=== PATIENT | female | born 1985 | race African-American/Black ===

== ENCOUNTER 2016-06-19 15:16 | Emergency (ER) | payer OTHER ==
[2016-06-19 15:58] VITALS: BP 112/72
--- NOTE | 2016-06-19 16:27 | UC ---
FLU HPI - HPI Summary HPI Summary: cough, sore throat fevers and chills began on Tuesdays---works at [employer] and has not gotten her flu vaccine yet - History of Current Complaint Chief Complaint: UCGeneralIllness Stated Complaint: ST,FEVER,ACHES Time Seen by Provider: 06/19/16 16:26 Hx Obtained From: Patient Hx Last Menstrual Period: 06/06/16 ?: No Onset/Duration: Sudden Onset, Lasting Days - 2, Still Present Severity Currently: Moderate Severity Initially: Moderate Pain Intensity: 5 Pain Scale Used: 0-10 Numeric Associated Signs & Symptoms: Positive: Fever, Myalgia, Cough, Sore Throat, Nasal Congestion, Headache Related Hx: Possible Flu/Infectious Exposure - Allergy/Home Medications Allergies/Adverse Reactions: Allergies Allergy/AdvReac Type Severity Reaction Status Date / Time No Known Allergies Allergy Verified 06/19/16 15:58 PMH/Surg Hx/FS Hx/Imm Hx Previously Healthy: Yes - Surgical History Surgical History: Yes Surgery Procedure, Year, and Place: c section - Family History Known Family History: Positive: Hypertension - Social History Occupation: Employed Full-time Lives: With Family Alcohol Use: Occasionally Substance Use Type: None Smoking Status (MU): Light Every Day Tobacco Smoker Amount Used/How Often: 1/2 PPD Household Exposure Type: Cigarettes Review of Systems Constitutional: Fever, Chills, Fatigue Skin: Negative Eyes: Negative ENT: Sore Throat, Nasal Discharge Respiratory: Cough Cardiovascular: Negative Gastrointestinal: Negative Genitourinary: Negative Motor: Negative Neurovascular: Negative Musculoskeletal: Arthralgia, Myalgia Neurological: Headache Psychological: Negative All Other Systems Reviewed And Are Negative: Yes Physical Exam Triage Information Reviewed: Yes Appearance: Well-Nourished, Ill-Appearing - mild, Pain Distress - mild Vital Signs: Initial Vital Signs Temp 99.5 F 06/19/16 15:53 Pulse 102 06/19/16 15:53 Resp 18 06/19/16 15:53 BP 112/72 06/19/16 15:53 Pulse Ox 100 06/19/16 15:53 Vital Signs Reviewed: Yes Eye Exam: Normal Eyes: Positive: Conjunctiva Clear ENT Exam: Other ENT: Positive: Normal ENT inspection, Hearing grossly normal, Pharynx normal, Nasal congestion, Nasal drainage, TMs normal. Negative: Tonsillar swelling, Tonsillar exudate, Trismus, Muffled/hoarse voice Dental Exam: Normal Neck exam: Normal Neck: Positive: Supple, Nontender, No Lymphadenopathy Respiratory Exam: Normal Respiratory: Positive: Chest non-tender, Lungs clear, Normal breath sounds, No respiratory distress, No accessory muscle use Cardiovascular Exam: Normal Cardiovascular: Positive: No Murmur, Pulses Normal, Brisk Capillary Refill, Tachycardia Musculoskeletal Exam: Normal Musculoskeletal: Positive: Strength Intact, ROM Intact, No Edema Neurological Exam: Normal Neurological: Positive: Alert, Muscle Tone Normal Psychological Exam: Normal Skin Exam: Normal Diagnostics - Laboratory Diagnostic Studies Completed/Ordered: RST and FLU a/b (-) Flu Course/Dx - Course Course Of Treatment: rest increase fluids, tylenol, ibuprofen, otc symptom relief follow with pcp re-check prn - Differential Dx/Diagnosis Differential Diagnosis/HQI/PQRI: Broncholiolitis, Influenza, RSV, Upper Respiratory Infection Provider Diagnoses: Viral URI Discharge - Discharge Plan Condition: Stable Disposition: HOME Patient Education Materials: Upper Respiratory Infection (ED), Viral Syndrome ( ED) Forms: *Work Release Referrals: Sobeida Eid MD [Primary Care Provider] - If Needed
[2016-06-19] MEDS ORDERED: Ibuprofen TAB* 600 MG PO ONE (17:06)
== END 2016-06-19 17:54 | disposition home or self-care (01) ==
LOC: UCEAST 15:16
DX: J06.9 Acute upper respiratory infection, unspecified (principal); F17.210 Nicotine dependence, cigarettes, uncomplicated
CPT/HCPCS: 87651; 99212; A9270-GY; G0463

== ENCOUNTER 2017-07-24 12:14 | Emergency (ER) | payer OTHER ==
[2017-07-24] MEDS ORDERED: Acetaminophen TAB* 325 MG PO ONE (13:09)
[2017-07-24] MEDS ORDERED: Cyclobenzaprine TAB* 10 MG PO ONE (13:10)
[2017-07-24 14:18] LABS: Urine Appearance Cloudy; Urine Blood Negative (Negative); Urine Color Yellow; Urine Ketones 2+ (Negative); Urine Protein 1+(30 mg/dL) (Negative); Urine Specific Gravity 1.029 (1.010-1.030); Urine Urobilinogen Negative (Negative)
--- NOTE | 2017-07-24 15:10 | ED ---
Abdominal Pain/Female - HPI Summary HPI Summary: Pt presents w/ B/L LBP which started a few days ago - has progressed into tightness/soreness into thoracic and Rt shoulder area. Worse w/ bending, lifting , moving arms. H/o pulling back muscles at times but has been a while - no alyssa trauma with these sx but reports she's a [employer] and moves pts routinely. Has tried ibuprofen with minimal relief. Denies numbness, tingling, weakness, incontinence of bowels or bladder, urinary frequency, dysuria, hematuria, fever , chills, nausea, vomiting, diarrhea, chest pain, shortness of breath. Concerned she might have a UTI so just wanted to get checked to be safe. - History of Current Complaint Chief Complaint: EDBackInjuryPain Stated Complaint: BACK PAIN POSSIBLE FLANK PAIN Time Seen by Provider: 07/24/17 12:31 Hx Obtained From: Patient Hx Last Menstrual Period: 06/06/16 Pain Intensity: 5 Allergies/Adverse Reactions: Allergies Allergy/AdvReac Type Severity Reaction Status Date / Time No Known Allergies Allergy Verified 06/19/16 15:58 PMH/Surg Hx/FS Hx/Imm Hx Previously Healthy: Yes Endocrine/Hematology History: Denies: Autoimmune Disease - Surgical History Surgery Procedure, Year, and Place: c section Infectious Disease History: No Infectious Disease History: Denies: History Other Infectious Disease, Traveled Outside the [place] in Last 30 Days - Family History Known Family History: Positive: Hypertension - Social History Occupation: Employed Full-time - [employer] Lives: With Family Alcohol Use: Occasionally Hx Substance Use: No Substance Use Type: Reports: Marijuana - uses for anxiety at times Hx Tobacco Use: Yes Smoking Status (MU): Light Every Day Tobacco Smoker Amount Used/How Often: 1/2 PPD Physical Exam Vital Signs On Initial Exam: Initial Vitals Temp Pulse Resp BP Pulse Ox 98.1 F 101 18 119/65 98 07/24/17 12:17 07/24/17 12:17 07/24/17 12:17 07/24/17 12:17 07/24/17 12:17 Diagnostics - Vital Signs Vital Signs Temp Pulse Resp BP Pulse Ox 07/24/17 12:17 98.1 F 101 18 119/65 98 - Laboratory Lab Results: Lab Results 07/24/17 Range/Units 13:58 Urine Color Yellow Urine Appearance Cloudy Urine pH 5.0 (5-9) Ur Specific [place] 1.029 (1.010-1.030) Urine Protein 1+(30 mg/dl) H (Negative) Urine Ketones 2+ H (Negative) Urine Blood Negative (Negative) Urine Nitrate Negative (Negative) Urine Bilirubin Negative (Negative) Urine Urobilinogen Negative (Negative) Ur Leukocyte Esterase Negative (Negative) Urine WBC (Auto) Trace(0-5/hpf) (Absent) Urine RBC (Auto) Trace(0-2/hpf) (Absent) Ur Squamous Epith Cells Present H (Absent) Urine Bacteria 1+ H (Absent) Urine Glucose Negative (Negative) Lab Statement: Any lab studies that have been ordered have been reviewed, and results considered in the medical decision making process. Re-Evaluation - Re-Evaluation First Eval Change: Improved Abdominal Pain Fem Course/Dx - Course Course Of Treatment: U/A unremarkable for stone, infection (appears to be a contamited collection and no urinary sx). ANA back pain. Rest, stretches, etc. F/u w/ PCP this week if persist. - Diagnoses Provider Diagnoses: Low back pain Discharge - Discharge Plan Condition: Stable Disposition: HOME Patient Education Materials: Low Back Strain (ED) Forms: *Work Release Referrals: Sobeida Eid MD [Primary Care Provider] - Additional Instructions: Rest, alternate heat and gentle stretches with ice, ibuprofen alternating with acetaminophen as needed for pain. You may also try topical pain rubs or patches such as Biofreeze, BenGay or Salonpas patches for pain. Stay hydrated. Follow up with her PCP next week if symptoms persist. If in the meantime you develop numbness, tingling, weakness, incontinence of bowels or bladder, severe back pain, fevers, chills, vomiting, diarrhea, painful or bloody urine, abdominal pain and/or heavy vaginal bleeding, return to the emergency department
[2017-07-24 15:29] VITALS: BP 102/79
== END 2017-07-24 15:28 | disposition home or self-care (01) ==
LOC: ED 12:14
DX: M54.5 Low back pain (principal); F17.200 Nicotine dependence, unspecified, uncomplicated
CPT/HCPCS: 81003; 81015; 87086; 99282; A9270-GY

== ENCOUNTER 2019-01-15 15:17 | Emergency (ER) | payer OTHER ==
[2019-01-15 15:21] VITALS: BP 160/93
--- NOTE | 2019-01-15 15:36 | ED ---
Skin Complaint - HPI Summary HPI Summary: This patient is a 33 year old F presenting to ED with a chief complaint of right thumb laceration x1 week ago. Patient is up-to-date on her tetanus vaccine. Patient was washing the dishes and her finger on glass. Patient states she does not feel any glass in the wound and was only concerned she may need stitches so came to ED. She is right-handed. The patient rates the pain 2/10 in severity, sharp located on her thumb and only painful when she touches the wound. - History of Current Complaint Chief Complaint: EDLacSutureRecheck Time Seen by Provider: 01/15/19 15:27 Stated Complaint: INJURY TO FINGER PER PT Hx Obtained From: Patient Hx Last Menstrual Period: 06/06/16 Onset/Duration: Started Weeks Ago - 1 week, Still Present Skin Exposure Onset/Duration: Weeks Ago - 1 week Timing: Constant Onset Severity: Mild Current Severity: Mild Pain Intensity: 2 Pain Scale Used: 0-10 Numeric Skin Location: Other: - Right thumb Aggravating Symptom(s): Nothing Alleviating Symptom(s): Nothing Associated Signs & Symptoms: Negative - Fever - Allergy/Home Medications Allergies/Adverse Reactions: Allergies Allergy/AdvReac Type Severity Reaction Status Date / Time No Known Allergies Allergy Verified 01/15/19 15:21 PMH/Surg Hx/FS Hx/Imm Hx Endocrine/Hematology History: Denies: Hx Diabetes Cardiovascular History: Denies: Hx Hypertension Sensory History: Denies: Hx Legally Blind, Hx Deafness Opthamlomology History: Denies: Hx Legally Blind EENT History: Denies: Hx Deafness - Surgical History Surgery Procedure, Year, and Place: c section Infectious Disease History: No Infectious Disease History: Denies: History Other Infectious Disease, Traveled Outside the [place] in Last 30 Days - Family History Known Family History: Positive: Hypertension - Social History Alcohol Use: Occasionally Hx Substance Use: No Substance Use Type: Reports: Marijuana - uses for anxiety at times Hx Tobacco Use: Yes Smoking Status (MU): Light Every Day Tobacco Smoker Type: Cigarettes Amount Used/How Often: 1/2 PPD Review of Systems Negative: Fever Skin: Other - Laceration to R thumb All Other Systems Reviewed And Are Negative: Yes Physical Exam - Summary Physical Exam Summary: General: Well appearing, no distress HEENT: PERRL Cardiovascular: Skin is well perfused Pulmonary: No respiratory distress, no tachypnea Abdomen: Non-distended Skin: 2 cm V shaped laceration w healing pink tissue, no FB palpated, wound explored. MSK: Hand PE Motor: Opposition of thumb and first finger intact Able to cross first and second finger Able to extend thumb Able to flex and extend wrist Able to spread fingers Sensory: Sensation intact in 1st digit Pulse: 2+ radial pulse intact. Brisk cap refill. Psych: Normal affect Neuro: A&Ox3 Triage Information Reviewed: Yes Vital Signs On Initial Exam: Initial Vitals Temp Pulse Resp BP Pulse Ox 98.3 F 57 16 160/93 100 01/15/19 15:18 01/15/19 15:18 01/15/19 15:18 01/15/19 15:18 01/15/19 15:18 Vital Signs Reviewed: Yes Diagnostics - Vital Signs Vital Signs Temp Pulse Resp BP Pulse Ox 01/15/19 15:18 98.3 F 57 16 160/93 100 - Laboratory Lab Statement: Any lab studies that have been ordered have been reviewed, and results considered in the medical decision making process. Course/Dx - Course Course Of Treatment: 33-year-old female presents to the right thumb laceration from one week ago. Physical exam with well healing laceration, advise patient that she is out of the window for any repair. Patient states that she'll keep the area dry and clean, is up-to-date on tetanus. Low suspicion for foreign body. - Diagnoses Provider Diagnoses: Finger laceration Discharge - Sign-Out/Discharge Documenting (check all that apply): Patient Departure - Discharge Patient Received Moderate/Deep Sedation with Procedure: No - Discharge Plan Condition: Stable Disposition: HOME Patient Education Materials: Laceration (ED), Finger Laceration (ED) Referrals: Sobeida Eid MD [Primary Care Provider] - Additional Instructions: Please keep the area dry and clean. Return to the emergency department or seek medical attention for drainage, redness to the area, increased pain around the laceration. Once the wound is healed, you can apply sunscreen to help with scar prevention. - Billing Disposition and Condition Condition: STABLE Disposition: Home - Attestation Statements Document Initiated by Scribe: Yes Documenting Scribe: Jasper Soto Provider For Whom Scribe is Documenting (Include Credential): Rich Hollingsworth MD Scribe Attestation: Jasper Anand, scribed for Rich Hollingsworth MD on 01/15/19 at 1537. Scribe Documentation Reviewed: Yes Provider Attestation: The documentation as recorded by the scribe, Jasper Soto accurately reflects the service I personally performed and the decisions made by me, Rich Hollingsworth MD Status of Scribe Document: Ready
== END 2019-01-15 15:36 | disposition home or self-care (01) ==
LOC: ED 15:17
DX: S61.011A Laceration without foreign body of right thumb without damage to nail, initial encounter (principal); W25.XXXA Contact with sharp glass, initial encounter; Y93.G1 Activity, food preparation and clean up; Y92.9 Unspecified place or not applicable; F17.210 Nicotine dependence, cigarettes, uncomplicated
CPT/HCPCS: 99281; 99282

== ENCOUNTER 2019-06-08 13:31 | Emergency (ER) | payer OTHER ==
[2019-06-08 14:06] LABS: ABS Basophils 0.1 10^3/ul (0-0.2); ABS Eosinophils 0.1 10^3/ul (0-0.6); ABS Lymphocytes 1.9 10^3/ul (1.0-4.8); ABS Monocytes 0.7 10^3/ul (0-0.8); ABS Neutrophils 4.7 10^3/ul (1.5-7.7); Eosinophil % 1.8 %; Hematocrit 41 % (35-47); Hemoglobin 14.1 g/dL (12.0-16.0); Lymphocyte % 25.2 %; Mean Corpuscular HGB Conc 35 g/dL (31-36); Mean Corpuscular Hemoglobin 29 pg (27-31); Mean Corpuscular Volume 84 fL (80-97); Mean Platelet Volume 9.3 fL (7.4-10.4); Nucleated Red Blood Cells % 0.1; Platelet Count 232 10^3/uL (150-450); Red Blood Count 4.83 10^6 /uL (3.70-4.87); Red Cell Distribution Width 17 % (10-15); White Blood Count 7.5 10^3/uL (3.5-10.8)
[2019-06-08 14:17] LABS: Albumin 4.1 g/dL (3.2-5.2); Albumin/Globulin Ratio 1.3 (1-3); BUN/Creatinine Ratio 12.3 (8-20); Calcium 8.9 mg/dL (8.6-10.3); EGFR African American 97.4 (>60); EGFR Non-African American 80.5 (>60); Globulin 3.2 g/dL (2-4); Potassium 3.7 mmol/L (3.5-5.0); Total Bilirubin 0.7 mg/dL (0.2-1.0); Total Protein 7.3 g/dL (6.4-8.9)
[2019-06-08 14:24] LABS: HCG Pregnancy 3.21 mIU/mL
[2019-06-08 15:17] LABS: TSH (Thyroid Stimulating Horm) 0.56 mcIU/mL (0.34-5.60)
[2019-06-08 15:21] VITALS: BP 153/90
--- NOTE | 2019-06-08 15:55 | ED ---
HPI Chest Pain - HPI Summary HPI Summary: Patient is a 33-year-old female with history of anxiety presents to the ED with diffuse chest pain which she describes as pins and needles. She is also endorsing some left-sided neck pain which resolved with Motrin. Today she noticed some right arm pain. She states she's been under a lot of stress lately and states this also could be anxiety. She has no cardiac history personally all she does smoke cigarettes daily. She states her sister had a VT in her mid 40s, had stents and survived. Due to her symptoms, she was concerned for an VT. She denies any recent illness, fevers, sweats, chills. She states symptoms are intermittent, have lasted for several days and not associated with any illness. Denies cough, congestion. Denies any nausea, vomiting, diarrhea, constipation. Denies recent travel. States she has new OCP, nexplanon. - History of Current Complaint Chief Complaint: EDChestPainROMI Time Seen by Provider: 06/08/19 13:42 Hx Obtained From: Patient Hx Last Menstrual Period: 06/06/16 Onset/Duration: Started Days Ago Timing: Intermittent, Lasting Minutes Initial Severity: Moderate Current Severity: Moderate Pain Intensity: 7 Pain Scale Used: 0-10 Numeric Chest Pain Location: Diffuse Chest Pain Radiates: No Character: Other: - pins and needles - intermittent Alleviating Factor(s): Nothing Associated Signs and Symptoms: Positive: Negative - Risk Factors Pulmonary Embolism Risk Factors: Estrogen AMI/ACS Risk Factors: Family History - Allergy/Home Medications Allergies/Adverse Reactions: Allergies Allergy/AdvReac Type Severity Reaction Status Date / Time No Known Allergies Allergy Verified 01/15/19 15:21 PMH/Surg Hx/FS Hx/Imm Hx Previously Healthy: Yes Endocrine/Hematology History: Denies: Hx Diabetes Cardiovascular History: Denies: Hx Hypertension Sensory History: Denies: Hx Legally Blind, Hx Deafness Opthamlomology History: Denies: Hx Legally Blind - Surgical History Surgery Procedure, Year, and Place: c section - Immunization History Hx Pertussis Vaccination: No Immunizations Up to Date: Yes Infectious Disease History: No Infectious Disease History: Denies: History Other Infectious Disease, Traveled Outside the [place] in Last 30 Days - Family History Known Family History: Positive: Hypertension - Social History Occupation: Unemployed Lives: With Family Alcohol Use: Occasionally Hx Substance Use: No Substance Use Type: Reports: Marijuana Hx Tobacco Use: Yes Smoking Status (MU): Heavy Every Day Tobacco Smoker Type: Cigarettes Amount Used/How Often: 1/2 PPD Review of Systems Negative: Fever, Chills, Fatigue, Skin Diaphoresis Positive: Chest Pain - pins and needles. Negative: Palpitations Negative: Shortness Of Breath, Cough Genitourinary: Negative Positive: no symptoms reported, see HPI Positive: Myalgia - arm pain. Negative: Arthralgia Skin: Negative Neurological: Negative All Other Systems Reviewed And Are Negative: Yes Physical Exam Triage Information Reviewed: Yes Vital Signs On Initial Exam: Initial Vitals Temp Pulse Resp BP Pulse Ox 98.5 F 68 22 157/85 100 06/08/19 13:35 06/08/19 13:35 06/08/19 13:35 06/08/19 13:35 06/08/19 13:35 Vital Signs Reviewed: Yes Appearance: Positive: Well-Appearing, Well-Nourished Skin: Positive: Warm, Skin Color Reflects Adequate Perfusion Head/Face: Positive: Normal Head/Face Inspection Eyes: Positive: EOMI, Conjunctiva Clear Neck: Positive: Supple, No Lymphadenopathy Respiratory/Lung Sounds: Positive: Clear to Auscultation, Breath Sounds Present Cardiovascular: Positive: RRR, Pulses are Symmetrical in both Upper and Lower Extremities Musculoskeletal: Positive: Normal, Strength/ROM Intact Neurological: Positive: Sensory/Motor Intact, Alert, Oriented to Person Place, Time, Speech Normal Psychiatric: Positive: Affect/Mood Appropriate AVPU Assessment: Alert Procedures - Sedation Patient Received Moderate/Deep Sedation with Procedure: No Diagnostics - Vital Signs Vital Signs Temp Pulse Resp BP Pulse Ox 06/08/19 15:20 98.2 F 61 21 153/90 98 06/08/19 15:00 63 17 99 06/08/19 14:16 64 14 98 06/08/19 13:35 98.5 F 68 22 157/85 100 - Laboratory Lab Results: Lab Results 06/08/19 06/08/19 06/08/19 Range/Units 13:51 13:51 13:51 WBC 7.5 (3.5-10.8) 10^3/uL RBC 4.83 (3.70-4.87) 10^6 /uL Hgb 14.1 (12.0-16.0) g/dL Hct 41 (35-47) % MCV 84 (80-97) fL MCH 29 (27-31) pg MCHC 35 (31-36) g/dL RDW 17 H (10-15) % Plt Count 232 (150-450) 10^3/uL MPV 9.3 (7.4-10.4) fL Neut % (Auto) 62.6 % Lymph % (Auto) 25.2 % [place] % (Auto) 9.6 % Eos % (Auto) 1.8 % Baso % (Auto) 0.8 % Absolute Neuts (auto) 4.7 (1.5-7.7) 10^3/ul Absolute Lymphs (auto) 1.9 (1.0-4.8) 10^3/ul Absolute Monos (auto) 0.7 (0-0.8) 10^3/ul Absolute Eos (auto) 0.1 (0-0.6) 10^3/ul Absolute Basos (auto) 0.1 (0-0.2) 10^3/ul Absolute Nucleated RBC 0.0 10^3/ul Nucleated RBC % 0.1 Sodium 138 (135-145) mmol/L Potassium 3.7 (3.5-5.0) mmol/L Chloride 107 (101-111) mmol/L Carbon Dioxide 25 (22-32) mmol/L Anion Gap 6 (2-11) mmol/L BUN 10 (6-24) mg/dL Creatinine 0.81 (0.51-0.95) mg/dL Est GFR ( Amer) 97.4 (>60) Est GFR (Non-Af Amer) 80.5 (>60) BUN/Creatinine Ratio 12.3 (8-20) Glucose 98 (70-100) mg/dL Lactic Acid 0.8 (0.5-2.0) mmol/L Calcium 8.9 (8.6-10.3) mg/dL Magnesium 2.0 (1.9-2.7) mg/dL Total Bilirubin 0.70 (0.2-1.0) mg/dL AST 14 (13-39) U/L ALT 16 (7-52) U/L Alkaline Phosphatase 77 (34-104) U/L Troponin I 0.00 (<0.03) ng/mL Total Protein 7.3 (6.4-8.9) g/dL Albumin 4.1 (3.2-5.2) g/dL Globulin 3.2 (2-4) g/dL Albumin/Globulin Ratio 1.3 (1-3) TSH 0.56 (0.34-5.60) mcIU/mL Beta HCG, Quant 3.21 mIU/mL Result Diagrams: 06/08/19 13:51 06/08/19 13:51 Lab Statement: Any lab studies that have been ordered have been reviewed, and results considered in the medical decision making process. Chest Pain Course/Dx - Course Course Of Treatment: Physical examination, patient is tearful. She states she has a lot of stress in her life and is very anxious at this time. Denies any SI or HI. She states she is concerned with the random and intermittent chest tingling over the past several days as well as now having arm pain. She currently denies any arm pain. She denies any shortness of breath. Denies any recent falls or trauma. Denies any fevers, sweats, chills. Vital signs are stable and patient is afebrile. Lungs are CTA, RRR. EKG shows no abnormalities. Chest x-ray shows no evidence of cardiomegaly pulmonary disease. Labs obtained including a troponin of 0.00. All other labs are unremarkable. Patient did admit her symptoms improved after Motrin. I have asked her to continue her Motrin regimen and to follow up with her PCP. She is a low risk for MACE and heart score = 1. Pt is OK for DC at this time and will be dx with anxiety. - Chest Pain Differential Diagnosis/HQI/PQRI: Chest Wall, Other: - anxiety - Diagnoses Provider Diagnoses: Anxiety, Chest pain, unspecified Discharge ED - Sign-Out/Discharge Documenting (check all that apply): Patient Departure - Discharge Plan Condition: Stable Disposition: HOME Referrals: Sobeida Eid MD [Primary Care Provider] - Additional Instructions: Please follow up with Dr. Eid as needed - Billing Disposition and Condition Condition: STABLE Disposition: Home
== END 2019-06-08 15:20 | disposition home or self-care (01) ==
LOC: ED 13:31
DX: R07.9 Chest pain, unspecified (principal); F41.9 Anxiety disorder, unspecified; F17.210 Nicotine dependence, cigarettes, uncomplicated
CPT/HCPCS: 36415; 71046; 80053; 83605; 83735; 84443; 84484; 84702; 85025; 93005; 99282